=== PATIENT | female | born 1945 | race Two or more races ===

== ENCOUNTER 2020-08-02 06:37 | Day surgery (SDC) | payer MEDICAID ==
[2020-07-30 16:42] LABS: COVID AG,FIA SOURCE NASOPHARYNGEAL
[~2020-08-02] VITALS: Ht 160 cm; Wt 80.9 kg
[~2020-08-02 06:37] MED LIST: AMLO-257 PO; ASPI-728 PO; ATEN100T92 PO; ATOR20TA86 PO; FLUO-191 PO; METF-960 PO; MONT-35 PO; NACL1 PO; OMEP-99 PO; PIOG15TA6 PO; PRED10 PO; SODIUM CHLORIDE 0.9% 1,000 ML IV ONE; SODIUM CHLORIDE 0.9% 1,000 ML ONE
[2020-08-02] MEDS ORDERED: BENZOCAINE 20% 50 MCG/SPRAY 57 GM TP ONE (06:38)
[2020-08-02] MEDS ORDERED: ALBUTEROL SULFATE 2.5 MG/0.5 ML NEB SOLUTION NEB ONE (06:38)
[2020-08-02] MEDS ORDERED: LIDOCAINE 2% 30 ML JELLY TP ONE (06:38)
[2020-08-02] MEDS ORDERED: LIDOCAINE 4% 50 ML SOLUTION TP ONE (06:38)
[2020-08-02 07:27] LABS: GLUCOMETER DEV NAME(LOC) SDS.; GLUCOSE,POINT OF CARE 129 MG/DL (70-110)
[2020-08-02] MEDS ORDERED: FentaNYL CITRATE PF 100 MCG/2 ML VIAL ONE (07:45)
[2020-08-02] MEDS ORDERED: MIDAZOLAM HCL 2 MG/2 ML VIAL ONE (07:45)
[2020-08-02] MEDS ORDERED: MethylPREDNISolone SOD SUCC 125 MG/2 ML VIAL IVP ONE (08:45)
[2020-08-02] MEDS ORDERED: MethylPREDNISolone SOD SUCC 125 MG/2 ML VIAL ONE (09:27)
[2020-08-02] MEDS ORDERED: OXYGEN THERAPY IH SCH (20:00)
== END 2020-08-02 10:15 | disposition home or self-care (01) ==
LOC: SURGERY 06:37
PROVIDERS: ATTEND Internal Medicine Critical Care Medicine
DX: J38.4 Edema of larynx (principal); B37.0 Candidal stomatitis; I10 Essential (primary) hypertension; E78.5 Hyperlipidemia, unspecified; E11.9 Type 2 diabetes mellitus without complications; Z98.890 Other specified postprocedural states; Z79.899 Other long term (current) drug therapy; Z79.82 Long term (current) use of aspirin
CPT/HCPCS: 31623; 31624; 71045; 82962; 87015; 87070; 87101; 87206; 87220; 87426; 88108; 88184; 88185; 88312; C9803; J2250; J2930; J3010; J7030; J7613; Z7610